=== PATIENT | female | born 1970 | race Caucasian/White ===

== ENCOUNTER → 2020-08-23 | Outpatient (CLI) | payer OTHER | LOC: MAMO 08:30 | DX: C50.912 Malignant neoplasm of unspecified site of left female breast (principal); C77.3 Secondary and unspecified malignant neoplasm of axilla and upper limb lymph nodes; C77.1 Secondary and unspecified malignant neoplasm of intrathoracic lymph nodes; C78.2 Secondary malignant neoplasm of pleura | CPT/HCPCS: 76641-RT; 77065; G0279 ==

== ENCOUNTER → 2020-08-25 | Outpatient (CLI) | payer OTHER | LOC: CT 07:41 → US 09:30 | DX: C50.912 Malignant neoplasm of unspecified site of left female breast (principal); C77.3 Secondary and unspecified malignant neoplasm of axilla and upper limb lymph nodes; C77.1 Secondary and unspecified malignant neoplasm of intrathoracic lymph nodes; C78.2 Secondary malignant neoplasm of pleura | CPT/HCPCS: 71250 ==

== ENCOUNTER → 2020-11-06 | Outpatient (CLI) | payer OTHER | LOC: NM 10-24 09:10 | DX: C50.912 Malignant neoplasm of unspecified site of left female breast (principal); C77.3 Secondary and unspecified malignant neoplasm of axilla and upper limb lymph nodes; C77.1 Secondary and unspecified malignant neoplasm of intrathoracic lymph nodes; C78.2 Secondary malignant neoplasm of pleura | CPT/HCPCS: 70553; 78306; A9503; A9577 ==

== ENCOUNTER → 2021-03-12 | Outpatient (CLI) | payer OTHER | LOC: NM 08:58 | DX: C50.912 Malignant neoplasm of unspecified site of left female breast (principal); C77.3 Secondary and unspecified malignant neoplasm of axilla and upper limb lymph nodes; C77.1 Secondary and unspecified malignant neoplasm of intrathoracic lymph nodes; C78.2 Secondary malignant neoplasm of pleura | CPT/HCPCS: 78306; A9503 ==

== ENCOUNTER → 2021-04-25 | Outpatient (CLI) | payer OTHER | LOC: CT 12:54 | DX: C50.912 Malignant neoplasm of unspecified site of left female breast (principal); C77.3 Secondary and unspecified malignant neoplasm of axilla and upper limb lymph nodes; C77.1 Secondary and unspecified malignant neoplasm of intrathoracic lymph nodes; C78.2 Secondary malignant neoplasm of pleura; M89.8X8 Other specified disorders of bone, other site; K63.89 Other specified diseases of intestine | CPT/HCPCS: 71250 ==

== ENCOUNTER → 2021-11-14 | Outpatient (CLI) | payer OTHER | LOC: NM 11-07 08:30 | DX: C50.912 Malignant neoplasm of unspecified site of left female breast (principal); C77.3 Secondary and unspecified malignant neoplasm of axilla and upper limb lymph nodes; C77.1 Secondary and unspecified malignant neoplasm of intrathoracic lymph nodes; C78.2 Secondary malignant neoplasm of pleura | CPT/HCPCS: 78306; A9503 ==